=== PATIENT | female | born 1985 | race Caucasian/White ===

== ENCOUNTER 2023-09-08 20:03 | Outpatient (REF) | payer BC, SELFPAY ==
[2023-09-12 12:09] LABS: Age Gdln ACOG Testing Note (.); HPV Aptima Negative (Negative); IGP, Aptima HPV, rfx 16/18,45 Note (.)
== END 2023-09-08 20:04 | disposition home or self-care (01) ==
LOC: LAB 20:03
PROVIDERS: Visit Provider Obstetrics & Gynecology
DX: Z01.419 Encounter for gynecological examination (general) (routine) without abnormal findings (principal)
CPT/HCPCS: 87624; G0145

== ENCOUNTER 2024-09-15 19:18 | Outpatient (REF) | payer BC, SELFPAY ==
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
== END 2024-09-15 19:19 | disposition home or self-care (01) ==
LOC: LAB 19:18
PROVIDERS: Visit Provider Physician Assistant
DX: Z01.419 Encounter for gynecological examination (general) (routine) without abnormal findings (principal)
CPT/HCPCS: 87624; 88175